=== PATIENT | female | born 1980 | race Caucasian/White ===

== ENCOUNTER 2021-10-13 12:27 | Emergency (ER) | payer OTHER ==
[~2021-10-13] VITALS: Ht 172.7 cm; Wt 79.5 kg
[2021-10-13 12:36] VITALS: TEMP 98
[2021-10-13] MEDS ORDERED: VITAMIN B12 1541 TAB PO (12:41)
[2021-10-13] MEDS ORDERED: GILENYA0.5 MG PO (12:41)
[2021-10-13] MEDS ORDERED: ZYRTEC 10MG10 MG PO (12:41)
[2021-10-13] MEDS ORDERED: ALDACTONE 100M100 MG PO (12:42)
[2021-10-13] MEDS ORDERED: MIRAPEX 1MG PO (12:42)
[2021-10-13] MEDS ORDERED: EFFEXOR-XR150 MG PO (12:42)
[2021-10-13 13:16] LABS: BASO % 0.2 % (0.0-2.0); EOS # 0.1 K/mm3 (0.0-0.7); EOS % 0.7 % (0.0-4.0); GRAN % 84.6 % (42.2-75.2); HEMATOCRIT 45.2 % (37.0-47.0); LYMPH # 0.7 K/mm3 (1.2-3.4); LYMPH % 7.9 % (20.0-51.0); MEAN CELL VOLUME 90 fl (80.0-100.0); MEAN CORPUSCULAR HEMOGLOBIN 32 pg (27-31); MEAN CORPUSCULAR HGB CONC 35 g/dl (33.0-37.0); MEAN PLATELET VOLUME 10.3 fl (7.4-10.4); MONO # 0.5 K/mm3 (0.1-0.6); MONO % 6.5 % (1.7-9.3); PLATELET COUNT 248 K/mm3 (130-400); RED BLOOD COUNT 5.03 M/mm3 (4.10-5.30); REDCELL DISTRIBUTION WIDTH-CV 13.8 % (11.5-14.5)
[2021-10-13 13:25] LABS: ALBUMIN 4.2 gm/dL (3.5-5.0); BILIRUBIN,TOTAL 0.6 mg/dL (0.2-1.2); C-REACTIVE PROTEIN 1.83 mg/dL (0.00-0.50); CALCIUM 9.4 mg/dL (8.4-10.2); CREATININE, serum 0.65 mg/dL (0.57-1.11); POTASSIUM 4.2 mmol/L (3.5-4.5); TOTAL PROTEIN 7.5 gm/dL (6.2-8.1)
[2021-10-13 14:50] LABS: COLLECTION METHOD CLEAN CATCH
[2021-10-13 14:58] LABS: MUCOUS Present (NOT PRESENT); PH 6 (5-8); SQUAMOUS EPITHELIAL 0-2 /hpf (0-10); URINE APPEARANCE Clear (CLEAR/HAZY); URINE BACTERIA None Seen /hpf (NONE SEEN); URINE BILIRUBIN Negative (NEGATIVE); URINE BLOOD Negative (NEGATIVE); URINE COLOR Yellow (YELLOW); URINE GLUCOSE Negative (NEGATIVE); URINE KETONE Negative (NEGATIVE); URINE LEUKOCYTE ESTERASE Negative (NEGATIVE); URINE NITRATE Negative (NEGATIVE); URINE PROTEIN(semi-quant) Negative (NEGATIVE); URINE RBC 0-2 /hpf (0-2); URINE UROBILINOGEN Negative (NEGATIVE)
[2021-10-13] MEDS ORDERED: PERCOCET 325 MG1 TA3 PO (15:11)
[2021-10-13 15:31] VITALS: BP 110/71; PULSE 75
== END 2021-10-13 15:31 | disposition home or self-care (01) ==
LOC: COL.ER 12:27
PROVIDERS: Physician Assistant
DX: R10.2 Pelvic and perineal pain (principal)
CPT/HCPCS: J1885; J2270; J7030; Q9967

== ENCOUNTER → 2022-01-14 | Outpatient (CLI) | payer OTHER ==
[~2022-01-14] MED LIST: ALDACTONE 100M100 MG PO; EFFEXOR-XR150 MG PO; GILENYA0.5 MG PO; MIRAPEX 1MG PO; PERCOCET 325 MG1 TA3 PO; VITAMIN B12 1541 TAB PO; ZYRTEC 10MG10 MG PO
== END ==
LOC: MHCPAIN 10:43
DX: M54.2 Cervicalgia (principal); M47.816 Spondylosis without myelopathy or radiculopathy, lumbar region; M54.50 Low back pain, unspecified; M53.3 Sacrococcygeal disorders, not elsewhere classified; G35 Multiple sclerosis
CPT/HCPCS: G0463

== ENCOUNTER → 2022-01-24 | Outpatient (CLI) | payer OTHER | LOC: MHCPAIN 08:27 | DX: M47.817 Spondylosis without myelopathy or radiculopathy, lumbosacral region (principal); M54.50 Low back pain, unspecified; M53.3 Sacrococcygeal disorders, not elsewhere classified ==

== ENCOUNTER → 2023-06-04 | Outpatient (CLI) | payer OTHER | LOC: MC.RAD 07:15 | DX: Z12.31 Encounter for screening mammogram for malignant neoplasm of breast (principal) ==